=== PATIENT | male | born 1975 | race Caucasian/White ===

== ENCOUNTER 2016-12-25 08:15 | Emergency (ER) | payer BC ==
[2016-12-25 08:34] VITALS: BP 126/84
--- NOTE | 2016-12-25 09:02 | UC ---
Respiratory Complaint HPI - HPI Summary HPI Summary: COUGH / CHEST CONGESTION X 4 DAYS + NASAL CONGESTION , NO SORE THROAT , NO FEVER, NO CHILLS NO WHEEZING , NO SOB - History of Current Complaint Chief Complaint: UCRespiratory Stated Complaint: CHEST CONGESTION Time Seen by Provider: 12/25/16 08:48 Hx Obtained From: Patient Onset/Duration: Gradual Onset, Lasting Days - 4, Still Present Timing: Constant Severity Initially: Moderate Severity Currently: Moderate Character: Cough: Nonproductive Aggravating Factors: Exertion, Deep Breaths Alleviating Factors: Nothing Associated Signs And Symptoms: Positive: URI. Negative: Dyspnea, Fever, Chills - Allergies/Home Medications Allergies/Adverse Reactions: Allergies Allergy/AdvReac Type Severity Reaction Status Date / Time No Known Allergies Allergy Verified 12/25/16 08:29 Home Medications: Home Medications Oxymetazoline 0.05% NASAL SPR* [Afrin 0.05% NASAL SPRAY*] 1 spray BOTH NARES Q12H PRN 12/25/16 [History Confirmed 12/25/16] Xdwjcamyvrvnv-Ykvftwjwhh-Jomlp [Nyquil Severe Cold/Flu 5-6.25-10-325 mg/15Ml] 30 ml PO Q6H PRN 12/25/16 [History Confirmed 12/25/16] PMH/Surg Hx/FS Hx/Imm Hx Previously Healthy: Yes - Surgical History Surgical History: Yes Surgery Procedure, Year, and Place: Kidney Stones, 1999, [place] - Family History Known Family History: Positive: None Negative: Diabetes - Social History Alcohol Use: Occasionally Substance Use Type: None Smoking Status (MU): Former Smoker - Immunization History Most Recent Influenza Vaccination: Not the Season Review of Systems Constitutional: Negative Skin: Negative Eyes: Negative ENT: Nasal Discharge, Sinus Congestion Respiratory: Cough Cardiovascular: Negative Gastrointestinal: Negative Is Patient Immunocompromised?: No All Other Systems Reviewed And Are Negative: Yes Physical Exam Triage Information Reviewed: Yes Appearance: Well-Appearing, No Pain Distress, Well-Nourished Vital Signs: Initial Vital Signs Temp 97.9 F 12/25/16 08:26 Pulse 68 12/25/16 08:26 Resp 16 12/25/16 08:26 BP 126/84 12/25/16 08:26 Pulse Ox 100 12/25/16 08:26 Eyes: Positive: Conjunctiva Clear ENT: Positive: Normal ENT inspection, Hearing grossly normal, Pharynx normal Neck exam: Normal Neck: Positive: Supple, Nontender, No Lymphadenopathy Respiratory: Positive: Chest non-tender, Lungs clear, Normal breath sounds Cardiovascular: Positive: RRR, No Murmur, Pulses Normal Skin Exam: Normal UC Diagnostic Evaluation - Laboratory O2 Sat by Pulse Oximetry: 100 Respiratory Course/Dx - Differential Dx/Diagnosis Provider Diagnoses: BRONCHITIS Discharge - Discharge Plan Condition: Stable Disposition: HOME Prescriptions: DOXYcycline CAP(*) [DOXYcycline 100MG CAP(*)] 100 mg PO BID #20 cap Patient Education Materials: Acute Bronchitis (ED) Referrals: Karen Thakkar MD [Primary Care Provider] - If Needed
== END 2016-12-25 08:59 | disposition home or self-care (01) ==
LOC: UCCORT 08:15
DX: J40 Bronchitis, not specified as acute or chronic (principal)
CPT/HCPCS: 99212; G0463

== ENCOUNTER 2018-05-12 08:12 | Emergency (ER) | payer BC, OTHER ==
[2018-05-12 08:40] VITALS: BP 140/95
--- NOTE | 2018-05-12 08:48 | UC ---
Respiratory Complaint HPI - HPI Summary HPI Summary: cough x 2 days cough is dry , + nasal congestion ,pnd no fever no chills , no body aches - History of Current Complaint Chief Complaint: UCRespiratory Stated Complaint: UPPER RESPITORY,COUGH Time Seen by Provider: 05/12/18 08:40 Hx Obtained From: Patient Onset/Duration: Gradual Onset, Lasting Days - 2, Still Present Timing: Constant Severity Initially: Moderate Severity Currently: Moderate Pain Intensity: 2 Character: Cough: Nonproductive Aggravating Factors: Exertion, Deep Breaths Associated Signs And Symptoms: Positive: Negative - Allergies/Home Medications Allergies/Adverse Reactions: Allergies Allergy/AdvReac Type Severity Reaction Status Date / Time No Known Allergies Allergy Verified 05/12/18 08:31 PMH/Surg Hx/FS Hx/Imm Hx Cardiovascular History: Hypertension - Surgical History Surgical History: Yes Surgery Procedure, Year, and Place: Kidney Stones, 1999, [place] - Family History Known Family History: Positive: None Negative: Diabetes - Social History Alcohol Use: Occasionally Substance Use Type: None Smoking Status (MU): Former Smoker - Immunization History Most Recent Influenza Vaccination: Not the Season Review of Systems All Other Systems Reviewed And Are Negative: Yes Constitutional: Positive: Negative Skin: Positive: Negative Eyes: Positive: Negative ENT: Positive: Nasal Discharge. Negative: Sore Throat Respiratory: Positive: Cough Cardiovascular: Positive: Negative Is Patient Immunocompromised?: No Physical Exam Triage Information Reviewed: Yes Appearance: Well-Appearing, No Pain Distress, Well-Nourished Vital Signs: Initial Vital Signs Temp 98 F 05/12/18 08:33 Pulse 58 05/12/18 08:33 Resp 16 05/12/18 08:33 BP 140/95 05/12/18 08:33 Pulse Ox 99 05/12/18 08:33 Vital Signs Reviewed: Yes Eye Exam: Normal Eyes: Positive: Conjunctiva Clear ENT: Positive: Normal ENT inspection, Hearing grossly normal, Pharynx normal Neck: Positive: Supple, Nontender, No Lymphadenopathy Respiratory: Positive: Chest non-tender, Lungs clear, Normal breath sounds Cardiovascular: Positive: RRR, No Murmur, Pulses Normal Skin Exam: Normal UC Diagnostic Evaluation - Laboratory O2 Sat by Pulse Oximetry: 99 Respiratory Course/Dx - Differential Dx/Diagnosis Provider Diagnosis: Bronchitis Discharge - Sign-Out/Discharge Documenting (check all that apply): Patient Departure All imaging exams completed and their final reports reviewed: No Studies - Discharge Plan Condition: Stable Disposition: HOME Prescriptions: Azithromycin TAB* [Zithromax TAB (Z-LIUDMILA) 250 mg #6 tabs] 2 tab PO .TODAY, THEN 1 DAILY #1 liudmila Patient Education Materials: Acute Bronchitis (ED) Referrals: Karen Thakkar MD [Primary Care Provider] - Additional Instructions: most likely a viral illness will send a Rx for zpak, may start the medication if getting worse/ having fever and productive cough - Billing Disposition and Condition Condition: STABLE Disposition: Home
== END 2018-05-12 08:52 | disposition home or self-care (01) ==
LOC: UCCORT 08:12
DX: J40 Bronchitis, not specified as acute or chronic (principal); I10 Essential (primary) hypertension; Z87.891 Personal history of nicotine dependence
CPT/HCPCS: 99212; G0463

== ENCOUNTER 2019-06-17 09:05 | Emergency (ER) | payer OTHER ==
--- OUTSIDE RECORDS SUMMARY | 2019-06-17 09:24 | XMS REPORT | Continuity of Care Document ---
:1975 External Reference #:[id number] Author Name Karen Thakkar MD Address [address] [place] [address] Problems Active Problems Provider Date Mixed hyperlipidemia Karen Thakkar MD Onset: 03/23/2013 Moderate major depression, single episode Karen Thakkar MD Onset: 2015 Testicular hypofunction Karen Thakkar MD Onset: 03/22/2017 Social History Type Date Description Comments Sex Unknown Cigarette Use Quit - Age 31 ETOH Use Rarely consumes alcohol Tobacco Use Start: Unknown End: Unknown Patient is a former smoker Smoking Status Reviewed: 04/05/19 Patient is a former smoker Allergies, Adverse Reactions, Alerts Description No Known Drug Allergies Medications Active Medications SIG Qnty Indications Ordering Date Provider Clotrimazole apply to affected 45gm B35.9 Bran Juarez, 09/19/2018 1% Cream areas twice a day DO until resolved Citalopram 1 by mouth every 90tabs F33.1 Karen Thakkar, 07/13/2017 Hydrobromide day MD 20mg Tablets Albuterol Sulfate 2 puffs every 4 1gm R05 Karen Thakkar, 03/22/2017 hours as needed Powder shortness of breath or cough Ibuprofen one by mouth every Unknown 600mg Tablets 8 hours as needed with food Immunizations CPT Code Status Date Vaccine Reaction Lot # [id number] Given 01/10/2018 Flu Vaccine NOS [facility] 49159 Given 12/26/2016 Afluria Or Fluvirin Flu Vac Intramuscular Q2039 Given 09/09/2016 Flu Vaccine NOS 70569 Given 01/11/2014 Tdap (Adacel) Ages 7 And Above Only Vital Signs Date Vital Result Comment 04/30/2019 7:58am Weight 265.00 lb Heart Rate 70 /min BP Systolic 126 mmHg BP Diastolic 86 mmHg Respiratory Rate 18 /min Height 68.5 inches 5'8.50" BMI (Body Mass Index) 39.7 kg/m2 04/05/2019 9:03am Body Temperature 97.2 F Weight 254.00 lb Heart Rate 82 /min BP Systolic 140 mmHg BP Diastolic 72 mmHg Respiratory Rate 18 /min Height 68.5 inches 5'8.50" BMI (Body Mass Index) 38.1 kg/m2 Results Description No Information Available Procedures Date Code Description Status 03/28/2006 [id number] Colonoscopy Completed Medical Devices Description No Information Available Encounters Type Date Location Provider Dx Diagnosis Office Visit 04/05/2019 9:00a [facility] Farzana Saleh NP L60.0 Ingrowing nail Assessments Date Code Description Provider 04/30/2019 E66.9 Obesity, unspecified Karen Thakkar MD 04/30/2019 F32.1 Major depressive disorder, single episode, Karen Thakkar MD moderate 04/30/2019 E78.2 Mixed hyperlipidemia Karen Thakkar MD 04/30/2019 I10 Essential (primary) hypertension Karen Thakkar MD 04/30/2019 E29.1 Testicular hypofunction Karen Thakkar MD 04/30/2019 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 Formal diet plans work best. goal is 210 pounds - he will start going to the gym, work on meal planning and eat veggies for snacks.F32.1 Major depressive disorder, single episode, moderateComments:Good control. Continue current treatment.Follow up:CT after 05/26 6-months follow up with fasting labs prior.E78.2 Mixed hyperlipidemiaNew Labs:Lipid Treatment, Scheduled: Comments:Hyperlipidemia is diet control. We will order lipid panel in 6 months.I10 Essential (primary) hypertensionNew Labs:Basic (BMP), Scheduled: 06/14CBC with Auto Diff-fcmg, Scheduled: 10/29/19TSH, Scheduled: Comments:Hypertension is diet controlled and at goal.E29.1 Testicular hypofunctionNew Labs:Testosterone,Free & Total-Male, Scheduled: Comments:We will check testosterone level during the next office visit.D44.10 Neoplasm of uncertain behavior of unspecified adrenal glandNew Xrays:CT Abd/ Pelvis W/O Contrast, Ordered: 04/30/19Comments:His last scan was done in 2018. We will repeat his scan to ensure the mass is not growing or new masses are ozrsuyoecvD93.39 Body mass index (BMI) 39.0-39.9, adultComments:The BMI is the ratio of height to weight. Weight loss is desirable. your goal BMI is between 18.9 and 25. Your are overweight. work on improving your diet to help with weight loss. Functional Status Description No Information Available Mental Status Description No Information Available Referrals Description No Information Available
--- OUTSIDE RECORDS SUMMARY | 2019-06-17 09:24 | XMS REPORT | Continuity of Care Document ---
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 [phone] Medicine Problems Active Problems Provider Date Hyperlipidemia Onset: 07/17/2012 Anxiety state Onset: 07/17/2012 Depressive disorder Onset: 07/17/2012 Social History Type Date Description Comments Sex Unknown Tobacco Use Start: Unknown End: Unknown Patient is a former smoker Smoking Status Reviewed: 05/21/19 Patient is a former smoker Allergies, Adverse Reactions, Alerts Description No Known Drug Allergies Medications Active Medications SIG Qnty Indications Ordering Provider Date Bupropion 1 tabletper day 30tabs F33.0 Tess Post, 05/21/2019 Hydrochloride ER (XL) by mouth daily M.D. 150mg Tablets ER 24HR Citalopram 1 tablet by mouth 30tabs Tess Post, 05/21/2019 Hydrobromide daily M.D. 10mg Tablets Immunizations CPT Code Status Date Vaccine Lot # 10136 Given 12/22/2011 Influenza Virus 3Yrs & Over 90788 Given 01/27/2009 Influenza Virus 3Yrs & Over 55671 Given 01/27/2009 Administration Swine Flu Shot 34705 Given 11/18/2005 Tetanus And Diptheria (Td) For Adult Use Preservative Free 33071 Given 12/28/2000 Measles Mumps And Rubella MMR 84146 Given 12/03/1997 Tetanus And Diptheria (Td) For Adult Use Preservative Free 65547 Given 06/03/1992 Measles Mumps And Rubella MMR Vital Signs Date Vital Result Comment 05/21/2019 8:44am Height 68 inches 5'8" Weight 260.00 lb Heart Rate 60 /min BP Systolic 127 mmHg BP Diastolic 81 mmHg O2 % BldC Oximetry 98 % BMI (Body Mass Index) 39.5 kg/m2 08/16/2012 9:37am Weight 241.00 lb Body Temperature 97.2 F Results Description No Information Available Procedures Description No Information Available Medical Devices Description No Information Available Encounters Description No Information Available Assessments Date Code Description Provider 05/21/2019 Z00.00 Encounter for general adult medical Bagdean Melendez NP examination without abnormal findings 05/21/2019 E78.5 Hyperlipidemia, unspecified Bagdean Melendez [employer] 05/21/2019 F33.0 Major depressive disorder, recurrent, Bagum Aylin Melendez [employer] mild 05/21/2019 R93.429 Abnormal radiologic findings on Bagum Aylin Melendez NP diagnostic imaging of unspecified kidney Plan of Treatment 05/21/2019 - Alma Rosa Andrewrobbinkia Melendez NPZ00.00 Encounter for general adult medical examination without abnormal findingsFollow up:4 weeks - change in psych meds [place]E78.5 Hyperlipidemia, unspecifiedComments:I do not have your recent blood work. I have requested records from your previous provider. Continueworking on your diet and exercise regimen until follow-up visit.F33.0 Major depressive disorder , recurrent, mildNew Medication:Bupropion Hydrochloride ER (XL) 150 mg - 1 tabletper day by mouth dailyComments:Your PHQ9 score was 3, which is good. You want to try a different anti-depressant.We will decrease your Citalopram and add on Wellbutrin.Keep your follow-up appointment in 4 weeks to address xyybzeC45.429 Abnormal radiologic findings on diagnostic imaging of unspecified kidneyComments:We are awaiting copy of your previous CT scans. Functional Status Description No Information Available Mental Status Description No Information Available Referrals Description No Information Available
--- NOTE | 2019-06-17 09:29 | UC ---
Respiratory Complaint HPI - HPI Summary HPI Summary: 44 yo with past hx of bronchitis, with several day history of cough with mild sputum production. No fever, chills, myalgias, appetite loss, nausea or vomiting. Mild dyspnea much as he has had in the past. Typically uses antibiotic and albuterol. No infectious contacts including COVID, no travel. - History of Current Complaint Chief Complaint: UCGeneralIllness Stated Complaint: COUGH Time Seen by Provider: 06/17/19 09:20 Hx Obtained From: Patient Onset/Duration: Gradual Onset, Lasting Days - 2-3 Timing: Constant Severity Initially: Mild Severity Currently: Mild Pain Intensity: 0 Character: Cough: Productive, Sputum Description: - clear Aggravating Factors: Exertion Alleviating Factors: Nothing Associated Signs And Symptoms: Positive: Dyspnea - mild, Wheezing. Negative: Fever, Chills, URI, Nasal Congestion - Risk Factors Pulmonary Embolism Risk Factors: Negative Cardiac Risk Factors: Negative Pseudomonas Risk Factors: Negative Tuberculosis Risk Factors: Negative - Allergies/Home Medications Allergies/Adverse Reactions: Allergies Allergy/AdvReac Type Severity Reaction Status Date / Time No Known Allergies Allergy Verified 06/17/19 09:16 Home Medications: Home Medications Albuterol HFA INHALER* [Ventolin HFA Inhaler*] 2 puff INH Q6H PRN #1 mdi [Rx] Amoxicillin PO (*) [Amoxicillin 875 MG (*)] 875 mg PO BID #14 tab 06/17/19 [Rx] Citalopram TAB* [CeleXA TAB*] 20 mg PO DAILY 06/17/19 [History Confirmed ] PMH/Surg Hx/FS Hx/Imm Hx Previously Healthy: Yes Psychological History: Anxiety - Surgical History Surgical History: Yes Surgery Procedure, Year, and Place: Kidney Stones, 1999, [place] - Family History Known Family History: Positive: None Negative: Diabetes - Social History Occupation: Employed Full-time Alcohol Use: Occasionally Substance Use Type: None Smoking Status (MU): Former Smoker - Immunization History Most Recent Influenza Vaccination: Not the 2017/2017 Season Review of Systems All Other Systems Reviewed And Are Negative: Yes Constitutional: Positive: Negative Skin: Positive: Negative Eyes: Positive: Negative ENT: Positive: Sinus Congestion - mild. Negative: Ear Ache, Nasal Discharge Respiratory: Positive: Cough Cardiovascular: Negative: Palpitations, Chest Pain Gastrointestinal: Positive: Negative Genitourinary: Positive: Negative Motor: Positive: Negative Neurovascular: Positive: Negative Musculoskeletal: Positive: Negative Neurological/Mental Status: Positive: Negative Psychological: Positive: Negative Is Patient Immunocompromised?: No Physical Exam Triage Information Reviewed: Yes Appearance: Well-Appearing, No Pain Distress Eye Exam: Normal ENT: Positive: Pharynx normal Neck: Positive: Supple, Nontender, No Lymphadenopathy Respiratory: Positive: No respiratory distress, Wheezing - wheeze in upper lung perez Cardiovascular: Positive: RRR, No Murmur Musculoskeletal Exam: Normal Neurological Exam: Normal Psychological Exam: Normal Skin Exam: Normal Respiratory Course/Dx - Course Course Of Treatment: azithromycin and albuterol for treatment of bronchitis. - Differential Dx/Diagnosis Differential Diagnosis/HQI/PQRI: Asthma, Bronchitis, Lower Resp Infection, Other - COVID Provider Diagnosis: Bronchitis Discharge ED - Sign-Out/Discharge Documenting (check all that apply): Patient Departure All imaging exams completed and their final reports reviewed: No Studies - Discharge Plan Condition: Stable Disposition: HOME Prescriptions: Albuterol HFA INHALER* [Ventolin HFA Inhaler*] 2 puff INH Q6H PRN #1 mdi PRN Reason: Wheezing Amoxicillin PO (*) [Amoxicillin 875 MG (*)] 875 mg PO BID #14 tab Patient Education Materials: Acute Bronchitis (ED) Referrals: Karen Thakkar MD [Primary Care Provider] - Additional Instructions: Please take the full course of antibiotic, and use albuterol as needed for relief of wheeze. Follow up if you have increased shortness of breath or develop a fever. - Billing Disposition and Condition Condition: STABLE Disposition: Home
[2019-06-17 09:43] VITALS: BP 161/98
== END 2019-06-17 09:53 | disposition home or self-care (01) ==
LOC: UCCORT 09:05
DX: J40 Bronchitis, not specified as acute or chronic (principal); Z87.891 Personal history of nicotine dependence
CPT/HCPCS: 99212; G0463